=== PATIENT | female | born 1980 | race Caucasian/White ===

== ENCOUNTER 2017-12-21 14:47 | Emergency (ER) | payer SELFPAY ==
[2017-12-21 15:58] LABS: Bilirubin,Urine NEG (Negative); Blood,Urine SM (Negative); Color,Urine Red (Yellow); Mucus,Urine FEW /HPF; Protein,Urine <15 mg/dL mg/dL (Negative); Urobilinogen,Urine < 2.0 mg/dL (<2.0)
[2017-12-21 16:04] LABS: BUN/Creatinine Ratio 20; Blood Urea Nitrogen 6 mg/dL (7-17); Calcium 8.8 mg/dL (8.4-10.2); Hemolysis Index 4
--- NOTE | 2017-12-21 17:07 | Ultrasound Report ---
FINAL REPORT EXAM: US OB > = 14 WEEKS FETUS HISTORY: vaginal bleed with COMPARISON: None. TECHNIQUE: Obstetric ultrasound was performed. FINDINGS: The cervix measures 4 centimeters and is closed. There is an anterior, grade 0 placenta, that is normal in morphology. There is a single live intrauterine in cephalic presentation. heart rate is 143 beats per minute. survey demonstrates normal intracranial contents, stomach, kidneys, bladder, diaphragm, four-chamber heart, umbilical cord and cord insertion. The spine is not well visualized due to positioning of the fetus. Biparietal diameter corresponds to a gestational age of 19 weeks, 4 days. Head circumference corresponds to a gestational age of 19 weeks, 2 days. Abdominal circumference corresponds to a gestational age of 19 weeks, 0 days. Femoral length corresponds to a gestational age of 19 weeks, 0 days. Composite gestational age by ultrasound is 19 weeks, 2 days, with estimated date of delivery of 05/15/2018. IMPRESSION: Single live intrauterine with composite gestational age by ultrasound of 19 weeks, 2 days, with estimated date of delivery of 05/15/2018. No visualized abnormalities. Normal placenta.
[2017-12-21] MEDS ORDERED: K-DUR PO ONE (20:13)
[2017-12-21 20:24] LABS: Hematocrit 36.6 % (30.3-42.9); Hemoglobin 12.5 gm/dl (10.1-14.3); Mean Corpuscular HGB Conc 34 % (30-34); Mean Corpuscular Hemoglobin 32 pg (28-32); Mean Corpuscular Volume 94 fl (79-97); Platelet Count 209 K/mm3 (140-440); Red Blood Count 3.89 M/mm3 (3.65-5.03); Red Cell Distribution Width 13.7 % (13.2-15.2)
--- NOTE | 2017-12-21 20:44 | Emergency Department Report ---
HPI - General Chief Complaint: Vaginal Bleeding Time Seen by Provider: 12/21/17 20:06 - HPI HPI: 37-year-old female presents to the emergency department with some mild vaginal bleeding and mild cramping that began earlier today while . The patient believes she is about 16 weeks . She has not had any care. With this she is with 4 live children. She otherwise denies any medical conditions. She has not taken anything for her symptoms on presentation. No recent travel or sick contacts at home. Her son is at bedside translating. ED Past Medical Hx - Past Medical History Hx Hypertension: No Hx Congestive Heart Failure: No Hx Diabetes: No Hx Renal Disease: No Hx Sickle Cell Disease: No Hx Seizures: No Hx Asthma: No Hx COPD: No - Social History Smoking Status: Never Smoker Substance Use Type: None - Medications Home Medications: Home Medications Medication Instructions Recorded Confirmed Last Taken Type Ibuprofen [Motrin 600 MG tab] 600 mg PO Q6HR #30 tablet 10/23/15 Unknown Rx oxyCODONE /ACETAMINOPHEN [Percocet 2 tab PO Q6H PRN #30 tablet 10/23/15 Unknown Rx 5/325 mg] Vit-Fe Fumar-FA [ 1 tab PO QDAY #30 tablet 12/21/17 Unknown Rx Vitamin] ED Review of Systems ROS: Stated complaint: VAGINAL BLEEDING Other details as noted in HPI Comment: All other systems reviewed and negative Constitutional: denies: chills, fever Eyes: denies: eye pain, eye discharge, vision change ENT: denies: ear pain, throat pain Respiratory: denies: cough, shortness of breath, wheezing Cardiovascular: denies: chest pain, palpitations Gastrointestinal: abdominal pain. denies: vomiting Genitourinary: other (vaginal bleeding). denies: urgency, dysuria, discharge Musculoskeletal: denies: back pain, joint swelling, arthralgia Skin: denies: rash, lesions Neurological: denies: headache, weakness, paresthesias Physical Exam - Physical Exam Vital Signs: Vital Signs 12/21/17 12/21/17 12/21/17 14:59 19:15 19:16 Temperature 98.2 F 98.1 F Pulse Rate 73 78 Respiratory 18 18 18 Rate Blood Pressure 115/62 Blood Pressure 100/50 [Left] O2 Sat by Pulse 100 98 98 Oximetry Physical Exam: GENERAL: The patient is well-developed well-nourished. HENT: Normocephalic. Atraumatic. Patient has moist mucous membranes. EYES: Extraocular motions are intact. Pupils equal reactive to light bilaterally. NECK: Supple. Trachea is midline. CHEST/LUNGS: Clear to auscultation. There is no respiratory distress noted. HEART/CARDIOVASCULAR: Regular. There is no tachycardia. There is no murmur. ABDOMEN: Abdomen is soft, nontender. Patient has normal bowel sounds. Gravid uterus palpable just below the umbilicus. SKIN: Skin is warm and dry. NEURO: The patient is awake, alert, and oriented. The patient is cooperative. The patient has no focal neurologic deficits. The patient has normal speech. MUSCULOSKELETAL: There is no tenderness or deformity. There is no limitation range of motion. There is no evidence of acute injury. ED Course Vital Signs 12/21/17 12/21/17 12/21/17 14:59 19:15 19:16 Temperature 98.2 F 98.1 F Pulse Rate 73 78 Respiratory 18 18 18 Rate Blood Pressure 115/62 Blood Pressure 100/50 [Left] O2 Sat by Pulse 100 98 98 Oximetry ED Medical Decision Making - Lab Data Result diagrams: 12/21/17 15:09 12/21/17 15:09 - Radiology Data Radiology results: report reviewed EXAM: US OB gt; = 14 WEEKS FETUS HISTORY: vaginal bleed with COMPARISON: None. TECHNIQUE: Obstetric ultrasound was performed. FINDINGS: The cervix measures 4 centimeters and is closed. There is an anterior, grade 0 placenta, that is normal in morphology. There is a single live intrauterine in cephalic presentation. heart rate is 143 beats per minute. survey demonstrates normal intracranial contents, stomach, kidneys, bladder, diaphragm, four-chamber heart, umbilical cord and cord insertion. The spine is not well visualized due to positioning of the fetus. Biparietal diameter corresponds to a gestational age of 19 weeks, 4 days. Head circumference corresponds to a gestational age of 19 weeks, 2 days. Abdominal circumference corresponds to a gestational age of 19 weeks, 0 days. Femoral length corresponds to a gestational age of 19 weeks, 0 days. Composite gestational age by ultrasound is 19 weeks, 2 days, with estimated date of delivery of 05/15/2018. IMPRESSION: Single live intrauterine with composite gestational age by ultrasound of 19 weeks, 2 days, with estimated date of delivery of 05/15/2018. No visualized abnormalities. Normal placenta. Transcribed By: SAÚL Dictated By: RISHI VAN MD Electronically Authenticated By: RISHI VAN MD Signed Date/Time: 12/21/17 1701 - Medical Decision Making female presents with very mild vaginal bleeding/spotting and some cramping. No care. Labs are mostly unremarkable including no urinary tract infection and no significant anemia. Ultrasound shows a live intrauterine at 19 weeks and 2 days. Vital signs stable throughout her ED course. The patient has been started on vitamins. We discussed the results and the diagnosis of both and threatened miscarriage, and she has been given multiple referrals for [facility]TE[facility]CE TECHN[facility] services. She will return to the ER with any worsening of her symptoms or any acute distress. - Differential Diagnosis , threatened miscarriage, spontaneous miscarriage, fibroids Critical Care Time: No Critical care attestation.: If time is entered above; I have spent that time in minutes in the direct care of this critically ill patient, excluding procedure time. ED Disposition Clinical Impression: Threatened miscarriage Qualifiers: Weeks of gestation: 19 weeks Qualified Code(s): Z3A.19 - 19 weeks gestation of Disposition: DC-01 TO HOME OR SELFCARE Is pt being admited?: No Condition: Stable Instructions: Threatened Miscarriage (ED), (ED) Additional Instructions: Please follow up with a MAINTENANCE TECHNICIAN [facility]RD SH[facility] in the next few days. Return to the emergency Department with any worsening of your symptoms or any acute distress. Prescriptions: Vit-Fe Fumar-FA [ Vitamin] 1 tab PO QDAY #30 tablet Referrals: [facility] [Provider Group] - 3-5 Days [facility] [Provider Group] - 3-5 Days [facility] [Provider Group] - 3-5 Days Time of Disposition: 20:53 Print Language: GREEK
[2017-12-21 21:09] VITALS: BP 107/59
== END 2017-12-21 21:18 | disposition home or self-care (01) ==
LOC: ED 14:47
DX: O20.0 Threatened abortion (principal); Z3A.19 19 weeks gestation of pregnancy; Z88.0 Allergy status to penicillin
CPT/HCPCS: 36415; 76805; 80048; 81001; 84702; 85027; 86900; 86901; 99284

== ENCOUNTER 2018-04-26 12:03 | Inpatient (IN) | payer OTHER ==
[2018-04-26] MEDS ORDERED: SUBLIMAZE IV PRN (14:03)
[2018-04-26] MEDS ORDERED: BRETHINE SUB-Q PRN (14:03)
[2018-04-26] MEDS ORDERED: XYLOCAINE 2% INFILTRATI ONE (14:03)
[2018-04-26] MEDS ORDERED: MINERAL OIL PO PRN (14:03)
[2018-04-26] MEDS ORDERED: BRETHINE IVP PRN (14:03)
[2018-04-26 14:25] LABS: Hematocrit 35.2 % (30.3-42.9); Mean Corpuscular HGB Conc 34 % (30-34); Mean Corpuscular Hemoglobin 32 pg (28-32); Mean Corpuscular Volume 94 fl (79-97); Platelet Count 161 K/mm3 (140-440); Red Blood Count 3.76 M/mm3 (3.65-5.03); Red Cell Distribution Width 13.5 % (13.2-15.2)
[2018-04-26] MEDS: CLEOCIN 900 MG/50 mL 900 MG/50 ML BAG IV SCH ×2 (14:35→22:30)
[2018-04-26] MEDS: LACTATED RINGERS 1,000 ML IV SCH ×2 (14:35→22:30)
[2018-04-26] MEDS: PITOCin/NS 30 UNIT/500ML 30 UNITS/500 ML BAG IV SCH ×3 (14:41→17:28)
[2018-04-26] MEDS ORDERED: LACTATED RINGERS 1,000 ML IV SCH (15:00)
--- NOTE | 2018-04-26 20:12 | History and Physical Report ---
History of Present Illness Date of examination: 04/26/18 Date of admission: 04/26/18 12:03 Chief complaint: Leaking Fluid History of present illness: 38yo G 5 P 3 1 0 4 at 36 weeks 1 day here with c/o leaking clear fluid since 10am. She reports positive movements but denies UCs or VB. She is a [facility] patient who initiated care in January 2018 at 22 weeks gestation. records available and reviewed. Her course was complicated by late entry to care, AMA, and positive chlamydia. Azithromycin prescription was given to the patient which she never took. 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 denies: smoking, alcohol abuse, IV drug use - Obstetrical History Expected Date of Delivery: 05/23/18 Actual Gestation: 36 Week(s) 1 Day(s) : 5 Para: 4 Hx # Term Pregnancies: 3 Number of Pregnancies: 1 Spontaneous Abortions: 0 Induced : 0 Number of Living Children: 4 Medications and Allergies Allergies Allergy/AdvReac Type Severity Reaction Status Date / Time Penicillins Allergy Mild Rash Verified 10/22/15 02:06 Home Medications Medication Instructions Recorded Confirmed Last Taken Type Ibuprofen [Motrin 600 MG tab] 600 mg PO Q6HR #30 tablet 10/23/15 Unknown Rx Vit-Fe Fumar-FA [ 1 tab PO QDAY #30 tablet 12/21/17 04/26/18 10:00 Rx Vitamin] 1 Multivitamin Tablet 1 tab PO DAILY 04/26/18 04/26/18 04/25/18 10:00 History 1 oxyCODONE /ACETAMINOPHEN [Percocet 1 tab PO Q6H PRN 04/26/18 04/26/18 Unknown History 5/325 mg] Active Meds: Active Medications Ephedrine Sulfate (Ephedrine Sulfate) 10 mg IV Q2M PRN PRN Reason: Hypotension Fentanyl (Sublimaze) 100 mcg IV Q2H PRN PRN Reason: Labor Pain Lactated Ringer's (Lactated Ringers) 1,000 mls @ 125 mls/hr IV DIRECT TOSHA Last Admin: 04/26/18 14:35 Dose: 125 mls/hr Clindamycin HCl (Cleocin 900 Mg/50 Ml) 900 mg in 50 mls @ 100 mls/hr IV Q8HR TOSHA; Protocol Last Admin: 04/26/18 14:35 Dose: 100 mls/hr Oxytocin/Sodium Chloride (Pitocin/Ns 20 Unit/1000ml Drip) 20 units in 1,000 mls @ 125 mls/hr IV DIRECT TOSHA Oxytocin/Sodium Chloride (Pitocin/Ns 30 Unit/500ml) 30 units in 500 mls @ 2 mls /hr IV TITR TOSHA; Protocol Last Admin: 04/26/18 17:28 Dose: 6 milliunits/min, 6 mls/hr Azithromycin 1,000 mg/ Sodium (Chloride) 250 mls @ 250 mls/hr IV Q24HR TOSHA Mineral Oil (Mineral Oil) 30 ml PO QHS PRN PRN Reason: Constipation Terbutaline Sulfate (Brethine) 0.25 mg SUB-Q ONCE PRN PRN Reason: Hyperstimulation/Hypertonicity Terbutaline Sulfate (Brethine) 0.25 mg IVP ONCE PRN PRN Reason: Hyperstimulation/Hypertonicity Review of Systems All systems: negative - Vital Signs Vital signs: Vital Signs Pulse BP Pulse Ox 125 H 97/63 96 04/26/18 12:21 04/26/18 12:21 04/26/18 12:21 Temp Pulse Resp BP Pulse Ox 99.0 F 65 18 110/66 98 04/26/18 19:52 04/26/18 20:00 04/26/18 19:52 04/26/18 19:56 04/26/18 20:00 - Obstetrical FHR: auscultation normal, category 1 FHR comments: baseline 130, moderate variability, 15x15 accels, no decels Cervical Dilatation: 2 (per RN) Cervical Effacement Percentage: 40 (per RN) station: -3 (per RN) Uterine Contraction Frequency (min): 2-4 Uterine Contraction Pattern: Regular Results Result Diagrams: 04/26/18 13:23 All other labs normal. Assessment and Plan - Patient Problems (1) 36 weeks gestation of Current Visit: Yes Status: Acute (2) premature rupture of membranes Current Visit: Yes Status: Acute Qualifiers: PROM onset of labor timing: onset of labor within 24 hours of rupture Qualified Code(s): O42.019 - premature rupture of membranes, onset of labor within 24 hours of rupture, unspecified trimester Plan to address problem: Admit to L&D with routine labor orders Clindamycin for GBS prophylaxis Oxytocin for labor augmentation Anticipate vaginal delivery (3) Chlamydia infection affecting in third trimester Current Visit: Yes Status: Acute Plan to address problem: Diagnosed 01/22/18; untreated Azithromycin 1g IV x1
[2018-04-26] MEDS ORDERED: ZITHROMAX IV ONE (21:00)
[2018-04-26] MEDS ORDERED: NACL 0.9% IV ONE (21:00)
[2018-04-27] MEDS: PITOCin/NS 30 UNIT/500ML 30 UNITS/500 ML BAG IV SCH (03:30)
[2018-04-27] MEDS: LACTATED RINGERS 1,000 ML IV SCH (06:26)
[2018-04-27] MEDS: CLEOCIN 900 MG/50 mL 900 MG/50 ML BAG IV SCH (06:26)
--- NOTE | 2018-04-27 14:12 | Progress Note ---
Assessment and Plan A: Term IUP Active labor Category 1 tracing Pitocin 16mu P: Continue routine labor orders Anticipate Subjective - Subjective Date of service: 04/27/18 (14:04) Interval history: See H&P Patient reports: movement normal Objective - Vital Signs Vital Signs: Vital Signs - 12hr 04/27/18 04/27/18 04/27/18 02:10 02:15 02:20 Temperature Pulse Rate 70 54 L 75 Blood Pressure O2 Sat by Pulse 99 99 99 Oximetry 04/27/18 04/27/18 04/27/18 02:25 02:30 02:35 Temperature Pulse Rate 61 65 52 L Blood Pressure O2 Sat by Pulse 99 99 99 Oximetry 04/27/18 04/27/18 04/27/18 02:40 02:45 02:50 Temperature Pulse Rate 56 L 66 59 L Blood Pressure O2 Sat by Pulse 99 99 99 Oximetry 04/27/18 04/27/18 04/27/18 02:54 02:55 03:00 Temperature Pulse Rate 66 78 70 Blood Pressure 98/57 O2 Sat by Pulse 98 99 Oximetry 04/27/18 04/27/18 04/27/18 03:05 03:10 03:15 Temperature Pulse Rate 62 55 L 90 Blood Pressure O2 Sat by Pulse 99 99 99 Oximetry 04/27/18 04/27/18 04/27/18 03:20 03:25 03:30 Temperature Pulse Rate 61 78 67 Blood Pressure O2 Sat by Pulse 98 97 99 Oximetry 04/27/18 04/27/18 04/27/18 03:35 03:40 03:45 Temperature Pulse Rate 58 L 81 61 Blood Pressure O2 Sat by Pulse 98 97 97 Oximetry 04/27/18 04/27/18 04/27/18 03:50 03:55 04:00 Temperature Pulse Rate 75 57 L 63 Blood Pressure 112/57 O2 Sat by Pulse 97 99 98 Oximetry 04/27/18 04/27/18 04/27/18 04:05 04:10 04:15 Temperature Pulse Rate 57 L 76 57 L Blood Pressure O2 Sat by Pulse 98 99 97 Oximetry 04/27/18 04/27/18 04/27/18 04:20 04:25 04:30 Temperature Pulse Rate 59 L 59 L 62 Blood Pressure O2 Sat by Pulse 97 97 96 Oximetry 04/27/18 04/27/18 04/27/18 04:35 04:40 04:45 Temperature Pulse Rate 63 61 60 Blood Pressure O2 Sat by Pulse 96 96 97 Oximetry 04/27/18 04/27/18 04/27/18 04:50 04:54 04:55 Temperature Pulse Rate 58 L 64 58 L Blood Pressure 107/56 O2 Sat by Pulse 97 98 Oximetry 04/27/18 04/27/18 04/27/18 05:00 05:05 05:10 Temperature Pulse Rate 61 58 L 58 L Blood Pressure O2 Sat by Pulse 97 97 97 Oximetry 04/27/18 04/27/18 04/27/18 05:15 05:20 05:25 Temperature Pulse Rate 83 63 59 L Blood Pressure O2 Sat by Pulse 98 96 95 Oximetry 04/27/18 04/27/18 04/27/18 05:29 05:30 05:35 Temperature Pulse Rate 64 66 59 L Blood Pressure O2 Sat by Pulse 94 95 99 Oximetry 04/27/18 04/27/18 04/27/18 05:40 05:45 05:50 Temperature Pulse Rate 57 L 57 L 54 L Blood Pressure O2 Sat by Pulse 97 99 97 Oximetry 04/27/18 04/27/18 04/27/18 05:54 05:55 06:00 Temperature Pulse Rate 56 L 56 L 55 L Blood Pressure 92/55 O2 Sat by Pulse 97 97 Oximetry 04/27/18 04/27/18 04/27/18 06:05 06:10 06:15 Temperature Pulse Rate 60 57 L 70 Blood Pressure O2 Sat by Pulse 99 99 99 Oximetry 04/27/18 04/27/18 04/27/18 06:20 06:25 06:30 Temperature Pulse Rate 64 54 L 57 L Blood Pressure O2 Sat by Pulse 100 99 99 Oximetry 04/27/18 04/27/18 04/27/18 06:35 06:40 06:45 Temperature Pulse Rate 52 L 56 L 51 L Blood Pressure O2 Sat by Pulse 97 99 98 Oximetry 04/27/18 04/27/18 04/27/18 06:50 06:54 06:55 Temperature Pulse Rate 53 L 56 L 57 L Blood Pressure 100/56 O2 Sat by Pulse 98 99 Oximetry 04/27/18 04/27/18 04/27/18 07:00 07:05 07:10 Temperature Pulse Rate 64 54 L 57 L Blood Pressure O2 Sat by Pulse 98 98 99 Oximetry 04/27/18 04/27/18 04/27/18 07:28 07:29 07:34 Temperature Pulse Rate 59 L 56 L 55 L Blood Pressure 98/65 O2 Sat by Pulse 98 98 Oximetry 04/27/18 04/27/18 04/27/18 07:39 07:44 07:49 Temperature Pulse Rate 62 78 60 Blood Pressure O2 Sat by Pulse 97 98 99 Oximetry 04/27/18 04/27/18 04/27/18 07:54 07:59 08:04 Temperature Pulse Rate 64 59 L 54 L Blood Pressure 116/63 O2 Sat by Pulse 99 99 100 Oximetry 04/27/18 04/27/18 04/27/18 08:09 08:14 08:19 Temperature Pulse Rate 54 L 55 L 51 L Blood Pressure O2 Sat by Pulse 99 99 99 Oximetry 04/27/18 04/27/18 04/27/18 08:24 08:29 08:34 Temperature Pulse Rate 54 L 71 53 L Blood Pressure O2 Sat by Pulse 99 99 99 Oximetry 04/27/18 04/27/18 04/27/18 08:39 08:44 08:49 Temperature Pulse Rate 55 L 57 L 54 L Blood Pressure O2 Sat by Pulse 98 97 96 Oximetry 04/27/18 04/27/18 04/27/18 08:54 08:55 08:59 Temperature Pulse Rate 55 L 58 L 53 L Blood Pressure 97/57 O2 Sat by Pulse 97 97 Oximetry 04/27/18 04/27/18 04/27/18 09:04 09:09 09:11 Temperature 98.1 F Pulse Rate 55 L 70 Blood Pressure O2 Sat by Pulse 99 97 Oximetry 04/27/18 04/27/18 04/27/18 09:14 09:19 09:24 Temperature Pulse Rate 53 L 55 L 56 L Blood Pressure O2 Sat by Pulse 98 97 99 Oximetry 04/27/18 04/27/18 04/27/18 09:29 09:34 09:39 Temperature Pulse Rate 50 L 52 L 53 L Blood Pressure O2 Sat by Pulse 98 98 99 Oximetry 04/27/18 04/27/18 04/27/18 09:44 09:49 09:54 Temperature Pulse Rate 55 L 57 L 55 L Blood Pressure O2 Sat by Pulse 99 100 99 Oximetry 04/27/18 04/27/18 04/27/18 09:59 10:04 10:09 Temperature Pulse Rate 57 L 52 L 58 L Blood Pressure O2 Sat by Pulse 98 98 98 Oximetry 04/27/18 04/27/18 04/27/18 10:14 10:19 10:24 Temperature Pulse Rate 56 L 57 L 53 L Blood Pressure O2 Sat by Pulse 100 99 98 Oximetry 04/27/18 04/27/18 04/27/18 10:29 10:34 10:41 Temperature Pulse Rate 53 L 56 L 54 L Blood Pressure O2 Sat by Pulse 98 99 100 Oximetry 04/27/18 04/27/18 04/27/18 10:42 10:46 10:51 Temperature Pulse Rate 53 L 51 L 53 L Blood Pressure 105/53 O2 Sat by Pulse 99 98 Oximetry 04/27/18 04/27/18 04/27/18 10:56 11:01 11:06 Temperature Pulse Rate 60 52 L 52 L Blood Pressure O2 Sat by Pulse 97 100 100 Oximetry 04/27/18 04/27/18 04/27/18 11:11 11:16 11:21 Temperature Pulse Rate 57 L 53 L 51 L Blood Pressure 97/53 O2 Sat by Pulse 100 99 99 Oximetry 04/27/18 04/27/18 04/27/18 11:26 11:31 11:36 Temperature Pulse Rate 54 L 53 L 55 L Blood Pressure 96/55 O2 Sat by Pulse 98 99 99 Oximetry 04/27/18 04/27/18 04/27/18 11:41 11:46 11:52 Temperature Pulse Rate 60 60 57 L Blood Pressure 100/55 O2 Sat by Pulse 99 93 98 Oximetry 04/27/18 04/27/18 04/27/18 11:56 11:57 12:02 Temperature Pulse Rate 58 L 55 L 55 L Blood Pressure 102/57 O2 Sat by Pulse 98 99 Oximetry 04/27/18 04/27/18 04/27/18 12:07 12:11 12:12 Temperature Pulse Rate 56 L 64 54 L Blood Pressure 101/57 O2 Sat by Pulse 98 98 Oximetry 04/27/18 04/27/18 04/27/18 12:17 12:22 12:26 Temperature Pulse Rate 56 L 53 L 77 Blood Pressure 103/60 O2 Sat by Pulse 97 98 Oximetry 04/27/18 04/27/1804/27/18 12:27 12:32 12:37 Temperature Pulse Rate 54 L 53 L 75 Blood Pressure O2 Sat by Pulse 98 99 98 Oximetry 04/27/18 04/27/18 04/27/18 12:41 12:42 12:47 Temperature Pulse Rate 54 L 56 L 55 L Blood Pressure 118/61 O2 Sat by Pulse 98 98 Oximetry 04/27/18 04/27/18 04/27/18 12:52 12:54 12:57 Temperature Pulse Rate 56 L 88 54 L Blood Pressure 78/42 O2 Sat by Pulse 98 76 L 92 Oximetry 04/27/18 04/27/18 04/27/18 13:02 13:07 13:11 Temperature Pulse Rate 55 L 54 L 54 L Blood Pressure 78/40 O2 Sat by Pulse 91 91 Oximetry 04/27/18 04/27/18 04/27/18 13:12 13:17 13:22 Temperature Pulse Rate 54 L 54 L 61 Blood Pressure O2 Sat by Pulse 91 92 90 Oximetry 04/27/18 04/27/18 04/27/18 13:26 13:27 13:32 Temperature Pulse Rate 55 L 58 L 52 L Blood Pressure 70/32 O2 Sat by Pulse 98 97 Oximetry 04/27/18 04/27/18 04/27/18 13:37 13:42 13:43 Temperature Pulse Rate 53 L 55 L 58 L Blood Pressure 82/45 O2 Sat by Pulse 96 96 94 Oximetry 04/27/18 04/27/18 04/27/18 13:47 13:52 14:00 Temperature Pulse Rate 56 L 57 L 53 L Blood Pressure O2 Sat by Pulse 98 97 98 Oximetry 04/27/18 14:05 Temperature Pulse Rate 62 Blood Pressure O2 Sat by Pulse 100 Oximetry - Exam Breasts: normal Cardiovascular: Regular rate, Normal S1, Normal S2, No murmurs Lungs: Clear to auscultation, Normal air movement Abdomen: Present: normal appearance, soft, normal bowel sounds. Absent: distention Vulva: both: normal Uterus: Present: other (Gravid) FHR: auscultation normal, category 1 Uterine Contraction Monitor Mode: External Cervical Dilatation: 6 (AROM forebag, Clear fluid, IUPC placed in gentle fashion ) Cervical Effacement Percentage: 80 station: -2 Uterine Contraction Pattern: Regular Uterine Tone Measurement Phase: Resting Uterine Contraction Intensity: Moderate Extremities: normal Deep Tendon Reflex Grade: Normal +2 - Labs Labs: Laboratory Results - last 24 hr 04/26/18 04/26/18 04/26/18 13:23 13:23 13:23 WBC 7.9 RBC 3.76 Hgb 12.0 Hct 35.2 MCV 94 MCH 32 MCHC 34 RDW 13.5 Plt Count 161 RPR Nonreactive Blood Type A POSITIVE Antibody Screen Negative
[2018-04-27] MEDS: PITOCin/NS 20 UNIT/1000ML DRIP 20 UNITS/1,000 ML BAG IV SCH ×2 (14:47→15:42)
--- NOTE | 2018-04-27 15:03 | Procedure Note ---
OB Delivery Note - Delivery Date of Delivery: 04/27/18 (14:42) Surgeon: VILLA TORRES (MARIELLE) Estimated blood loss: 200cc - Vaginal Delivery presentation: vertex Delivery position: OA Intrapartum events: none Delivery induction: oxytocin Delivery augmentation: rupture of membranes Delivery monitor: external FHT, external uterine, internal uterine Route of delivery: (14:42) Delivery placenta: spontaneous (14:47Intact) Delivery cord: 3 umbilical vessels Episiotomy: none Delivery laceration: none Anesthesia: none Delivery comments: viable female infant, DEBORAH position over intact perineum at 14:42. NICU and RT present for 36 week gestational age. Infant to mothers abdomen. SKin-to- skin. Delayed cord clamping, then cut by FOB. Cord blood collected per protocol. Spontaneous flower delivery of intact placenta at 14:47. FF@U-1. no tears or lacerations. EBL 200ml. and mother left in stable condition in L &D. GBS positive. Treated x2. - A at 1 minute: 8 at 5 minutes: 9 Gender: Female (3205 grams, 7lbs 1oz, 19")
[2018-04-27] MEDS ORDERED: PHENERGAN PO PRN (15:08)
[2018-04-27] MEDS ORDERED: DULCOLAX PR PRN (15:08)
[2018-04-27] MEDS ORDERED: NORCO 5/325 PO PRN (15:08)
[2018-04-27] MEDS ORDERED: ZOFRAN IV PRN (15:08)
[2018-04-27] MEDS ORDERED: TUCKS PAD TP PRN (15:08)
[2018-04-27] MEDS ORDERED: MILK OF MAGNESIA PO PRN (15:08)
[2018-04-27] MEDS ORDERED: TYLENOL PO PRN (15:08)
[2018-04-27] MEDS ORDERED: BENADRYL PO PRN (15:08)
[2018-04-27] MEDS ORDERED: LANSINOH TP PRN (15:08)
[2018-04-27] MEDS: MOTRIN PO SCH (15:49)
[2018-04-27] MEDS ORDERED: SODIUM CHLORIDE FLUSH SYRINGE 10 ML IV NR (16:00)
[2018-04-28] MEDS: MOTRIN PO SCH ×5 (00:11→23:56)
[2018-04-28 02:50] LABS: Hematocrit 30.4 % (30.3-42.9); Hemoglobin 10.4 gm/dl (10.1-14.3)
[2018-04-28] MEDS ORDERED: BOOSTRIX IM ONE (06:00)
--- NOTE | 2018-04-28 09:46 | Progress Note ---
Assessment and Plan - Patient Problems (1) Status post normal vaginal delivery Current Visit: Yes Status: Acute Plan to address problem: PPD #1 - stable Continue routine PP orders Discharge to home 04/29/18 Follow up at [facility] in 6 weeks for exam Subjective - Subjective Date of service: 04/28/18 Principal diagnosis: PPD #1; s/p Interval history: 38yo G 5 P 3 1 0 4 at 36 weeks 1 day here with c/o leaking clear fluid since 10am. She reports positive movements but denies UCs or VB. She is a [facility] patient who initiated care in January 2018 at 22 weeks gestation. records available and reviewed. Her course was complicated by late entry to care, AMA, and positive chlamydia. Azithromycin prescription was given to the patient which she never took. labs: A+, antibody neg, pap neg, rubella immune, RPR neg, HBsAG neg, chlamydia +, GC neg, 1-hr GTT 108, GBS unhkown Patient reports: appetite normal, voiding normally, pain well controlled, ambulating normally : doing well, bottle feeding Objective - Vital Signs Latest vital signs: Vital Signs Temp Pulse Resp BP BP Pulse Ox 04/28/18 08:43 98.3 F 60 22 115/63 99 04/28/18 05:53 18 04/28/18 04:30 98.6 F 78 16 118/64 04/28/18 00:11 18 04/28/18 00:00 98.7 F 77 18 104/74 04/27/18 20:00 98.7 F 77 16 114/78 04/27/18 17:50 20 04/27/18 16:10 98.5 F 51 L 20 96/51 98 04/27/18 15:56 54 L 110/60 04/27/18 15:45 53 L 102/59 04/27/18 15:41 52 L 103/55 04/27/18 15:26 55 L 98/54 04/27/18 15:11 173 H 96/61 04/27/18 14:57 78 95/50 04/27/18 14:47 86 95/52 04/27/18 14:43 91 H 129/62 04/27/18 14:35 93 H 99 04/27/18 14:30 68 100 04/27/18 14:26 76 104/59 04/27/18 14:25 80 100 04/27/18 14:20 70 99 04/27/18 14:15 72 99 04/27/18 14:11 85 100/58 04/27/18 14:10 69 98 04/27/18 14:05 62 100 04/27/18 14:00 53 L 98 04/27/18 13:52 57 L 97 04/27/18 13:47 56 L 98 04/27/18 13:43 58 L 94 04/27/18 13:42 55 L 82/45 96 04/27/18 13:37 53 L 96 04/27/18 13:32 52 L 97 04/27/18 13:27 58 L 98 04/27/18 13:26 55 L 70/32 04/27/18 13:22 61 90 04/27/18 13:17 54 L 92 04/27/18 13:12 54 L 91 04/27/18 13:11 54 L 78/40 04/27/18 13:07 54 L 91 04/27/18 13:02 55 L 91 04/27/18 12:57 54 L 78/42 92 04/27/18 12:54 88 76 L 04/27/18 12:52 56 L 98 04/27/18 12:47 55 L 98 04/27/18 12:42 56 L 98 04/27/18 12:41 54 L 118/61 04/27/18 12:37 75 98 04/27/18 12:32 53 L 99 04/27/18 12:27 54 L 98 04/27/18 12:26 77 103/60 04/27/18 12:22 53 L 98 04/27/18 12:17 56 L 97 04/27/18 12:12 54 L 98 04/27/18 12:11 64 101/57 04/27/18 12:07 56 L 98 04/27/18 12:02 55 L 99 04/27/18 11:57 55 L 98 04/27/18 11:56 58 L 102/57 04/27/18 11:52 57 L 98 04/27/18 11:46 60 93 04/27/18 11:41 60 100/55 99 04/27/18 11:36 55 L 99 04/27/18 11:31 53 L 99 04/27/18 11:26 54 L 96/55 98 04/27/18 11:21 51 L 99 04/27/18 11:16 53 L 99 04/27/18 11:11 57 L 97/53 100 04/27/18 11:06 52 L 100 04/27/18 11:01 52 L 100 04/27/18 10:56 60 97 04/27/18 10:51 53 L 98 04/27/18 10:46 51 L 99 04/27/18 10:42 53 L 105/53 04/27/18 10:41 54 L 100 04/27/18 10:34 56 L 99 04/27/18 10:29 53 L 98 04/27/18 10:24 53 L 98 04/27/18 10:19 57 L 99 04/27/18 10:14 56 L 100 04/27/18 10:09 58 L 98 04/27/18 10:04 52 L 98 04/27/18 09:59 57 L 98 04/27/18 09:54 55 L 99 04/27/18 09:49 57 L 100 04/27/18 09:44 55 L 99 Intake and Output 04/27/18 04/28/18 04/28/18 23:59 07:59 15:59 Intake Total 300 Balance 300 Intake: Intake, Free Water 300 Other: # Voids Void 1 - Exam Abdomen: Present: normal appearance, soft Vulva: both: normal Uterus: Present: normal, firm, fundal height at umbilicus Extremities: Present: normal
--- NOTE | 2018-04-28 09:49 | Discharge Summary ---
Providers - Providers Date of Admission: 04/26/18 12:03 Date of discharge: 04/29/18 Attending physician: TAZ WALL MD Primary care physician: [employer] Hospitalization Reason for admission: IUP - , rupture of membranes Delivery: Episiotomy: none Laceration: none Other procedures: none complications: none Discharge diagnosis: IUP at term delivered baby: female Hospital course: Uncomplicated Condition at discharge: Stable Disposition: DC-01 TO HOME OR SELFCARE - Discharge Diagnoses (1) Status post normal vaginal delivery Status: Acute Plan - Provider Discharge Summary Activity: routine, no sex for 6 weeks, no heavy lifting 4 weeks, no strenuous exercise Diet: routine Instructions: routine Additional instructions: [] Smoking cessation referral if applicable(refer to patient education folder for contact #) [] Refer to [facility]'s [facility] Booklet Call your doctor immediately for: * Fever > 100.5 * Heavy vaginal bleeding ( >1 pad per hour) * Severe persistent headache * Shortness of breath * Reddened, hot, painful area to leg or breast * Drainage or odor from incision. * Keep incision clean and dry at all times and follow doctor's instructions regarding bathing/showering - Follow up plan Follow up: PRIMARY CARE, [Primary Care Provider] - 6 Weeks (Follow up at [facility] in 6 weeks for exam)
[2018-04-29] MEDS: MOTRIN PO SCH (13:15)
[2018-04-29 15:25] VITALS: BP 112/52
== END 2018-04-29 15:50 | disposition home or self-care (01) | DRG 774 ==
LOC: LD 12:03 → OB 04-27 16:45
PROVIDERS: ADMIT Obstetrics & Gynecology; ATTEND Obstetrics & Gynecology
PROC: 10E0XZZ Delivery of Products of Conception, External Approach (ICD-10-PCS; principal; 2018-04-27)
PROC: 3E033VJ Introduction of Other Hormone into Peripheral Vein, Percutaneous Approach (ICD-10-PCS; 2018-04-27)
DX: O99.824 Streptococcus B carrier state complicating childbirth (principal); O98.82 Other maternal infectious and parasitic diseases complicating childbirth; O42.913 Preterm premature rupture of membranes, unspecified as to length of time between rupture and onset of labor, third trimester; Z3A.36 36 weeks gestation of pregnancy; Z37.0 Single live birth; Z88.0 Allergy status to penicillin; Z79.899 Other long term (current) drug therapy
CPT/HCPCS: 36415; 85014; 85018; 85027; 86592; 86850; 86900; 86901; 90471; 90715; J0456; J2590; J7050; J7120